=== PATIENT | male | born 1960 | race Hispanic/Latino ===

== ENCOUNTER 2017-09-08 08:09 | Observation (INO) | payer SELFPAY ==
[~2017-09-08] VITALS: Ht 172.7 cm; Wt 75.5 kg
[~2017-09-08 08:09] MED LIST: BACTRIM DS1 TAB OR; CEPH500C57 OR; CEPHALEXIN500 MG OR; LORTAB5 PO; NO HOME MEDS
--- NOTE | 2017-09-08 08:09 | NUR ---
PATIENT BACK TO ROOM IMMEDIATELY VIA WHEELCHAIR, REPORTS MIDSTERNAL CHEST PAIN 08/25 RADIATES TO LEFT ARM. REPORTS ONSET 09/05/17. AT BEDSIDE FOR EXAM.
--- NOTE | 2017-09-08 08:15 | NUR ---
IN TO DO BEDSIDE ULTRASOUND OF AORTA.
[2017-09-08] MEDS ORDERED: TAMSULOSIN HCL0.4 MG PO (08:19)
[2017-09-08] MEDS ORDERED: CENTRUM MEN1 TAB (08:20)
[2017-09-08 08:21] LABS: HEMATOCRIT 40.2 % (39.0-50.0); HEMOGLOBIN 13.3 g/dl (14.0-18.0); IMMATURE GRANULOCYTES 0.3 % (0.0-5.0); MEAN CELL VOLUME 86.5 fL CALC (80.0-100.0); MEAN CORPUSCULAR HGB 28.6 pG CALC (26.0-32.0); MEAN CORPUSCULAR HGB CONC 33.1 g/L CALC (32.0-36.0); NEUT# 3.02 thou/uL (1.82-7.42); RED BLOOD COUNT 4.65 mill/uL (4.70-6.10); RED CELL DISTRI WIDTH 13.7 % (11.5-15.5)
--- NOTE | 2017-09-08 08:23 | NUR ---
PATIENT IS ALERT AND ORIENTED X4, DENIES ANY SOB. LUNG SOUNDS CLEAR BILATERALLY. REPORTS CHEST PAIN 1/10 AFTER SECOND SL 0.4 MG NITRO. CLEAR SPEECH NOTED.
[2017-09-08 08:34] LABS: ANION GAP 12 (6-22 (CALC)); BUN 18 mg/dL (9-20); BUN/CREATININE RATIO 23 (12-20 (CALC)); CARBON DIOXIDE 25 mmol/l (22-30); CHLORIDE 107 mmol/l (95-108); CREATININE 0.8 mg/dL (0.7-1.3); GFR > 60 ML/MIN (>=60 (CALC)); GFR FOR AFR.AMER. > 60 ML/MIN (>=60 (CALC)); POTASSIUM 4.1 mmol/l (3.5-5.1); SODIUM 139 mmol/l (137-146)
--- NOTE | 2017-09-08 08:43 | NUR ---
REPORTS CHEST PAIN 02/25. UPDATED ON WAIT TIME, VERBAL UNDERSTANDING. DENIES ANY NEEDS. WILL CONTINUE TO MONITOR. VISITOR AT BEDSIDE.
--- NOTE | 2017-09-08 08:47 | NUR ---
AT BEDSIDE TO DISCUSS RESULTS AND PLAN OF CARE.
--- NOTE | 2017-09-08 09:04 | NUR ---
PATIENT REPORTS BEING ALLERGIC TO TWO DIFFERENT TYPES OF ANTIBIOTICS, DOES NOT RECALL NAMES OF ANTIBIOTICS. REPORTS NAUSEA AND BLURRED VISION REACTIONS.
--- NOTE | 2017-09-08 09:40 | NUR ---
UPDATED ON PLAN OF CARE AFTER SPOKE WITH . INFORMED OF SECOND TROPONIN TO BE DRAW IN ED. VERBAL UNDERSTANDING. REPORTS CHEST PAIN 4/10, DENIES ANY NEED FOR PAIN MEDICATIONS. SB 55 ON TEST ADMINISTRATOR. WILL CONTINUE TO MONITOR.
--- NOTE | 2017-09-08 10:29 | NUR ---
PATIENT REPORTS CHEST PAIN 06/25, MADE AWARE. AWAITING NEW ORDERS.
--- NOTE | 2017-09-08 10:41 | NUR ---
PATIENT MEDICATED WITH 4 MG OF ZOFRAN IV AND 4 MG OF MORPHINE IV, INFORMED TO CALL FOR ASSISTANCE. CALL LIGHT WITHIN REACH. WILL CONTINUE TO MONITOR.
--- NOTE | 2017-09-08 11:00 | NUR ---
PATIENT REPORTS CHEST PAIN 0/10 AT THIS TIME, DENIES ANY NEEDS. WILL CONTINUE TO MONITOR.
--- NOTE | 2017-09-08 11:15 | NUR ---
SECOND TROPONIN LAB WORK OBTAINED.
--- NOTE | 2017-09-08 12:27 | NUR ---
AT BEDSIDE TO SPEAK TO PATIENT ABOUT RESULTS AND ADMIT.
--- NOTE | 2017-09-08 12:33 | NUR ---
ATTEMPT MADE TO CALL REPORT, SPOKE TO CECI, REPORTS NURSE IS NOT AVAILABLE. WILL CALL BACK.
--- NOTE | 2017-09-08 12:57 | NUR ---
REPORT GIVEN TO NARGIS SAHU.
--- NOTE | 2017-09-08 13:02 | NUR ---
PATIENT TRANSPORTED TO [facility] VIA WHEELCHAIR WITH TELE IN PLACE. NARGIS SAHU INFORMED OF PATIENT'S ARRIVAL TO FLOOR. CARE RELINQUISHED.
[2017-09-08 13:05] VITALS: BP 107/66
--- NOTE | 2017-09-08 14:52 | NUR ---
REPORT RECEIVED FROM SUDHAKAR PT ARRIVED ON UNIT @ 1306 VIA W/C, ALERT AND ROEINTED X 4, REPORTS CP @ 02/25 AT THAT TIME. ORIENTED TO ROOM AND CALL [facility], EDUCATED ON DVT PROPHYLAXIS AND OFFERED LENORE STOCKINGS BUT RFUSED. TELE MONITOR IN PLACE, WILL CONTINUE TO MONITOR.
[2017-09-08 14:57] VITALS: BP 115/70
[2017-09-08 18:50] VITALS: BP 111/66
--- NOTE | 2017-09-08 19:15 | NUR ---
RECIEVED CALL FROM DAJA IN THE LAB WITH [facility]ICAL LAB-TROP [phone]. DR. THORPE CALLED AND ORDERS RECIEVED TO TRANFER PATIENT TO [facility]. PATIENT IS RESTING IN BED WITH NO COMPLAINTS AT THIS TIME-DENIES ANY CHEST PAIN, NO SOB NOTED. TELE MONITORING DEVICE IN PLACE. HEP LOCK INTACT AND APPEARS HEALTHY AT THIS TIME. SAFETY PRECAUTIONS REINFORCED. CALL LIGHT IN REACH. WILL CONT TO MONITOR.
--- NOTE | 2017-09-08 19:20 | NUR ---
[facility] CALL AND SPOKE WITH TAVARES AT [phone]. INFO WAS PROVIDED AND TAVARES FAXED FACE SHEET TO [phone]. STATES THAT SHE WILL CALL BACK WITH BED ASSIGNMENT AND MD. 1999-CALL BETWEEN DR. THORPE AND . 2009-ACCEPTANCE BY DR ROSADO TO TRANSFER. AWAITING BED ASSIGNMENT. 2030- BED ASSISGNMENT-7E TOWER-ROOM 777BED A. [facility] CALLED FOR TRANSPORT. PATIENT NOTIFIED OF PLAN AND ETD IN APPROX. 30 MIN. PATIENT REMAINS ASYMPTOMATIC-NO PAIN NO SOB. EKG WAS DONE AT BEDSIDE.
--- NOTE | 2017-09-08 20:55 | NUR ---
[facility] HERE FOR TRANSFER TO [facility]. TRANSFER PACKAGE PROVIDED TO [facility]. PATIENT TRANSFERED TO [facility] VIA STRETCHER WITH PERSONEL BELONGINGS. TELE MONITOR REMOVED AND SENT BACK TO THE ER.
--- NOTE | 2017-09-08 22:45 | NUR ---
REPORT CALLED TO VIK AT [facility].
--- NOTE | 2017-09-08 23:12 | NUR ---
PATIENT C/O LEFT EAR AND HEAD PAIN. MEDICATED WITH MORPHINE 2MG IVP ORDERED FOR PAIN. AZATAM 2GM IVP HUNG ORDERED VIA RIGHT WRIST SITE. SITE IS HEALTHY WITH GOOD BLOOD RETURN. DRESSING TO LEFT SIDE OF HIS HEAD IS INTACT WITH COBAN AT THIS TIME. O2 VIA NASAL CANNULA IN PLACE AT 2LPM. PATIENT STATES THAT HE SLEEPS WITH O2 AT HOME. HOB IS ELEVATED. SAFETY PRECAUTIONS REINFORCED. CALL LIGHT IN REACH. WILL CONT TO MONITOR.
== END 2017-09-08 20:55 | disposition short-term general hospital (02) | DRG 313 ==
LOC: ED 08:09 → ED-I 08:40 → ED 12:15 → MS2 12:16
PROVIDERS: Family Medicine; ADMIT Internal Medicine; ATTEND Internal Medicine
DX: R07.9 Chest pain, unspecified (principal); R74.8 Abnormal levels of other serum enzymes; Z87.891 Personal history of nicotine dependence
CPT/HCPCS: G0378; J1650

== ENCOUNTER 2018-04-09 13:20 | Emergency (ER) | payer OTHER ==
[~2018-04-09] VITALS: Ht 172.7 cm; Wt 80.0 kg
[~2018-04-09 13:20] MED LIST changes: +CENTRUM MEN1 TAB; +TAMSULOSIN HCL0.4 MG PO
[2018-04-09] MEDS ORDERED: METOPROLOL SUCC50 MG PO (17:07)
[2018-04-09] MEDS ORDERED: LIPITOR40 M1 PO (17:07)
[2018-04-09] MEDS ORDERED: CLOPIDOGREL75 MG PO (17:07)
[2018-04-09] MEDS ORDERED: METOPROL TAR25 MG PO (17:08)
[2018-04-09] MEDS ORDERED: ASPIRIN81 MG PO (17:08)
[2018-04-09 18:06] VITALS: BP 126/66
== END 2018-04-09 18:16 | disposition home or self-care (01) | DRG 914 ==
LOC: ED 13:20
DX: S89.91XA Unspecified injury of right lower leg, initial encounter (principal); R73.03 Prediabetes; X50.9XXA Other and unspecified overexertion or strenuous movements or postures, initial encounter; Y92.89 Other specified places as the place of occurrence of the external cause; Z95.5 Presence of coronary angioplasty implant and graft
CPT/HCPCS: L1830

== ENCOUNTER 2019-04-28 15:27 | Emergency (ER) | payer SELFPAY ==
[~2019-04-28 15:27] MED LIST changes: +ASPIRIN81 MG PO; +CLOPIDOGREL75 MG PO; +LIPITOR40 M1 PO; +METOPROL TAR25 MG PO; +METOPROLOL SUCC50 MG PO
[2019-04-28 15:39] VITALS: BP 133/79
== END 2019-04-28 17:56 | disposition left against medical advice (07) | DRG 951 ==
LOC: ED 15:27 → LWOBS 17:54
DX: Z53.21 Procedure and treatment not carried out due to patient leaving prior to being seen by health care provider (principal)

== ENCOUNTER 2020-10-19 10:04 | Outpatient (REF) | payer BC | END 2020-10-19 15:34 | disposition home or self-care (01) | DRG 179 | LOC: INF 10:04 → MSOP 10:04 | PROVIDERS: ATTEND Internal Medicine | DX: U07.1 COVID-19 (principal) ==